=== PATIENT | male | born 1960 | race Caucasian/White ===

== ENCOUNTER 2016-04-19 13:45 | Day surgery (SDC) | payer OTHER ==
[~2016-04-19] VITALS: Ht 167.6 cm; Wt 93.0 kg
[~2016-04-19 13:45] MED LIST: CRESTOR20 MG PO; EPIPEN ADU0.3 MG/0.3 IM; GLUCOPHAGE500 MG PO; IMDUR120 MG PO; LO-DOSE ASPIRIN81 M2 PO; NITROSTAT0.4 MG SL; PLAVIX75 MG PO; PROTONIX40 MG PO; RANEXA500 MG PO; TOPROL XL50 MG PO
[2016-04-19 14:37] LABS: POINT-OF-CARE METER ID UU14174212
== END 2016-04-19 16:31 | disposition home or self-care (01) ==
LOC: EDSEX 13:45 → PAIN 13:45 → SDC 14:45 → PAIN 14:45
PROVIDERS: Anesthesiology Pain Medicine
DX: M47.896 Other spondylosis, lumbar region (principal); M54.5 Low back pain; F41.1 Generalized anxiety disorder; M47.812 Spondylosis without myelopathy or radiculopathy, cervical region; I25.10 Atherosclerotic heart disease of native coronary artery without angina pectoris
CPT/HCPCS: 82948; J2250; J3010

== ENCOUNTER 2016-11-23 08:21 | Emergency (ER) | payer OTHER ==
[~2016-11-23] VITALS: Ht 167.6 cm; Wt 92.7 kg
[2016-11-23 09:15] LABS: BASOPHIL COUNT 0.1 K/uL (0-0.1); EOSINOPHIL (%) 3.6 % (0-5); EOSINOPHIL COUNT 0.5 K/uL (0-0.3); HEMATOCRIT 48.1 % (38.0-50.0); IMMATURE GRANULOCYTE (%) 0.8 % (0.0-0.7); IMMATURE GRANULOCYTE COUNT 0.1 K/uL; INSTRUMENT ABS NEUTROPHIL CT 9.4 K/uL; LYMPHOCYTE COUNT 2.3 K/uL (1.0-2.8); MCH 29.5 PG (29.0-34.0); MCHC 33.7 G/DL (30.0-36.0); MCV 87.6 FL (86-99); MEAN PLAT.VOLUME 9.2 uM^3 (9.0-12.4); MONOCYTE (%) 6.1 % (3-12); MONOCYTE COUNT 0.8 K/uL (0-0.8); NEUTROPHIL (%) 71.8 % (45-76); NEUTROPHIL COUNT 9.4 K/uL (1.8-6.4); PLATELET COUNT 274 K/uL (156-360); RBC DIS.WIDTH-CV 13.2 % (11.8-14.6); RBC DIS.WIDTH-SD 42.1 % (39-53); RED BLOOD COUNT 5.49 M/uL (4.00-5.50); WHITE BLOOD COUNT 13.1 K/uL (4.1-10.2)
[2016-11-23 09:20] LABS: INTER. NORMALIZED RATIO 1.1
[2016-11-23 09:23] LABS: PTT 31.8 SEC (25-37)
[2016-11-23 09:33] LABS: CHLORIDE 106 mEq/L (99-109); POTASSIUM 4.3 mEq/L (3.7-5.4); SODIUM 140 mEq/L (136-147)
[2016-11-23 09:34] LABS: TROP-I INTERPRETATION NEGATIVE; TROPONIN-I < 0.01 ng/mL (0.0-0.30)
[2016-11-23 09:35] LABS: GLUCOSE 154 mg/dL (70-99)
[2016-11-23 09:37] LABS: ANION GAP 11 MEQ/L (2-14)
[2016-11-23 09:39] LABS: GFR ESTIMATE (CALCULATED) > 59 mL/min/
[2016-11-23 09:40] LABS: UREA NITROGEN (BUN) 14 mg/dL (9-23)
[2016-11-23 12:01] LABS: TROP-I INTERPRETATION NEGATIVE; TROPONIN-I < 0.01 ng/mL (0.0-0.30)
[2016-11-23 12:23] LABS: D-DIMER ELISA < 150.00 ng/mLDDU (<230)
[2016-11-23 13:22] VITALS: BP 123/70
== END 2016-11-23 13:24 | disposition home or self-care (01) ==
LOC: EME 08:21
PROVIDERS: Emergency Medicine
DX: R07.89 Other chest pain (principal); M54.5 Low back pain; M54.2 Cervicalgia; M79.1 Myalgia; R20.0 Anesthesia of skin; I10 Essential (primary) hypertension; E11.9 Type 2 diabetes mellitus without complications; Z79.84 Long term (current) use of oral hypoglycemic drugs; Z79.02 Long term (current) use of antithrombotics/antiplatelets; Z79.82 Long term (current) use of aspirin; Z95.5 Presence of coronary angioplasty implant and graft; Z87.891 Personal history of nicotine dependence
CPT/HCPCS: 71010; 80048; 84484; 85025; 85379; 85610; 85730; 93005; 99281; 99285; J2270; J3010

== ENCOUNTER → 2017-01-31 | Day surgery (SDC) | payer OTHER ==
[~2017-01-31] VITALS: Ht 175.3 cm; Wt 92.7 kg
[2017-01-31 08:36] LABS: POINT-OF-CARE METER ID UU14174212
== END | disposition home or self-care (01) ==
LOC: PAIN 08:14 → SDC 09:00
PROVIDERS: Anesthesiology Pain Medicine
DX: M54.12 Radiculopathy, cervical region (principal); Z53.8 Procedure and treatment not carried out for other reasons
CPT/HCPCS: 82948; J1100; J2250; J3010

== ENCOUNTER 2017-02-28 08:00 | Day surgery (SDC) | payer OTHER ==
[~2017-02-28] VITALS: Ht 167.6 cm; Wt 91.6 kg
[~2017-02-28 08:00] MED LIST changes: +BYDUREON P2 MG/0.65 SC; +NEURONTIN100 MG PO
[2017-02-28 08:21] LABS: POINT-OF-CARE METER ID UU14174212
== END 2017-02-28 09:45 | disposition home or self-care (01) ==
LOC: PAIN 08:00 → SDC 09:00 → PAIN 09:00
PROVIDERS: Anesthesiology Pain Medicine
DX: M47.26 Other spondylosis with radiculopathy, lumbar region (principal); M54.5 Low back pain; M47.22 Other spondylosis with radiculopathy, cervical region; I10 Essential (primary) hypertension; I25.10 Atherosclerotic heart disease of native coronary artery without angina pectoris; E11.9 Type 2 diabetes mellitus without complications; Z79.82 Long term (current) use of aspirin; Z79.02 Long term (current) use of antithrombotics/antiplatelets; Z79.84 Long term (current) use of oral hypoglycemic drugs; I25.2 Old myocardial infarction; Z86.73 Personal history of transient ischemic attack (TIA), and cerebral infarction without residual deficits
CPT/HCPCS: 82948; J1030; J2250; J3010; S0020